=== PATIENT | female | born 1990 | race Caucasian/White ===

== ENCOUNTER 2018-09-24 06:17 | Inpatient (IN) | payer BC ==
[2018-09-24] VITALS (30 sets, daily range): BP systolic 122–159; BP diastolic 59–96; PULSE 64–105; TEMP 98.2–98.8
[~2018-09-24] VITALS: Ht 165.1 cm; Wt 84.5 kg
[~2018-09-24 06:17] MED LIST: ASPIRIN 32325 MG/TAB PO; PEPCID 20MG TAB20 MG PO; TYLENOL 325MG325 MG PO
[2018-09-24] MEDS ORDERED: PRENATAL MVI (07:19)
[2018-09-24 08:16] LABS: COLLECTION METHOD CLEAN CATCH
[2018-09-24 08:18] LABS: HEMOGLOBIN 14.1 g/dl (12.5-16.0); MEAN CELL VOLUME 84 fl (80.0-100.0); MEAN CORPUSCULAR HEMOGLOBIN 28 pg (27.0-31.0); MEAN CORPUSCULAR HGB CONC 33 g/dl (33.0-37.0); PLATELET COUNT 175 K/mm3 (130-400); RED BLOOD COUNT 5.11 M/mm3 (4.10-5.30); REDCELL DISTRIBUTION WIDTH-CV 13.7 % (11.5-14.5)
[2018-09-24 08:27] LABS: PH 7 (5-8); URINE APPEARANCE Clear; URINE BACTERIA None Seen /hpf; URINE BILIRUBIN Negative (NEGATIVE); URINE BLOOD 2+ (NEGATIVE); URINE COLOR Yellow; URINE GLUCOSE Negative (NEGATIVE); URINE KETONE Negative (NEGATIVE); URINE LEUKOCYTE ESTERASE Negative (NEGATIVE); URINE NITRATE Negative (NEGATIVE); URINE PROTEIN(semi-quant) Negative (NEGATIVE); URINE UROBILINOGEN Negative (NEGATIVE)
[2018-09-24 08:29] LABS: ALBUMIN 3.7 gm/dL (3.5-5.0); CALCIUM 9.9 mg/dL (8.4-10.2); CREATININE, serum 0.68 mg/dL (0.52-1.25); TOTAL PROTEIN 6.8 gm/dL (6.4-8.2)
[2018-09-24 08:30] LABS: BILIRUBIN,TOTAL 0.3 mg/dL (0.0-1.0)
[2018-09-24 08:43] LABS: BAND 9 % (0-10); EOSINOPHIL 1 % (0-4); LYMPHOCYTE 18 % (20.0-51.0); NEUTROPHILS 65 % (42.0-75.2); PLATELET ESTIMATE NORMAL (NORMAL)
[2018-09-25 00:52] VITALS: BP 135/85; PULSE 69
[2018-09-25 03:08] VITALS: BP 145/89; PULSE 69; TEMP 98.6
[2018-09-25 06:09] VITALS: BP 130/84; PULSE 75; TEMP 98.9
[2018-09-25 13:00] VITALS: BP 131/82; PULSE 70
[2018-09-25 21:25] VITALS: BP 138/72; PULSE 81
[2018-09-26 07:41] VITALS: BP 130/89; PULSE 76; TEMP 98.6
[2018-09-26] MEDS ORDERED: IBU600 MG PO (08:43)
== END 2018-09-26 15:45 | disposition home or self-care (01) | DRG 806 ==
LOC: LDRO 06:17 → OB 07:25 → LDR 07:25 → OB 16:45
PROVIDERS: Obstetrics & Gynecology
PROC: 10E0XZZ Delivery of Products of Conception, External Approach (ICD-10-PCS; principal; 2018-09-24)
PROC: 0KQM0ZZ Repair Perineum Muscle, Open Approach (ICD-10-PCS; 2018-09-24)
DX: O70.1 Second degree perineal laceration during delivery (principal); O99.413 Diseases of the circulatory system complicating pregnancy, third trimester; Z37.0 Single live birth; I31.9 Disease of pericardium, unspecified; Z3A.39 39 weeks gestation of pregnancy; O76 Abnormality in fetal heart rate and rhythm complicating labor and delivery; O99.824 Streptococcus B carrier state complicating childbirth
CPT/HCPCS: J2540; J2590; J2795; J7120

== ENCOUNTER → 2020-05-05 | Outpatient (CLI) | payer BC ==
[~2020-05-05] MED LIST changes: +IBU600 MG PO; +PRENATAL MVI
== END ==
LOC: ZCOL.LAB 15:14
DX: M79.10 Myalgia, unspecified site (principal); R09.81 Nasal congestion

== ENCOUNTER 2021-01-22 04:59 | Inpatient (IN) | payer BC ==
[2021-01-22] VITALS (20 sets, daily range): BP systolic 117–166; BP diastolic 79–101; PULSE 62–94; TEMP 97.6–99.3
[~2021-01-22] VITALS: Ht 172.7 cm; Wt 84.1 kg
--- NOTE | 2021-01-22 05:15 | NUR ---
0515 G2 L1 39.3 WEEKS GEST TO LR5 WITH C/O SROM AT 0400 AND PAINFUL CONTRACTIONS. EFM ON. SVE /-1. WANTING EPIDURAL. ADM ASSESMENT DONE. 0520 DR HIGHTOWER AND ORDER TO ADMIT RECEIVED. ANESTHSIA CALLED.
[2021-01-22] MEDS ORDERED: PRENATAL TABLET PO (05:22)
[2021-01-22] MEDS ORDERED: COLACE 100100 MG/CAP PO (05:23)
--- NOTE | 2021-01-22 05:50 | NUR ---
0550 IV STARTED AND IV ANTIBIOTIC STARTED PER PROTOCOL. CHILD ADVOCATE HERE AND SAT ON SIDE OF BED FOR EPIDURAL PLACEMENT. 0601 EPID DOSED. SEE ANESTHESIA RECORD FOR MORE INFORMATION.
[2021-01-22 05:56] LABS: HEMATOCRIT 45.5 % (37.0-47.0); HEMOGLOBIN 14.7 g/dl (12.5-16.0); MEAN CELL VOLUME 88 fl (80.0-100.0); MEAN CORPUSCULAR HEMOGLOBIN 28 pg (27.0-31.0); MEAN CORPUSCULAR HGB CONC 32 g/dl (33.0-37.0); MEAN PLATELET VOLUME 11.7 fl (7.4-10.4); PLATELET COUNT 177 K/mm3 (130-400); RED BLOOD COUNT 5.18 M/mm3 (4.10-5.30); REDCELL DISTRIBUTION WIDTH-CV 13.6 % (11.5-14.5)
[2021-01-22 06:24] LABS: HYPOCHROMIA 1+; LYMPHOCYTE 31 % (20.0-51.0); NEUTROPHILS 64 % (42.0-75.2); PLATELET ESTIMATE NORMAL (NORMAL)
--- NOTE | 2021-01-22 07:49 | NUR ---
0736- Dr Collins at [facility]. SVE complete. Pt and room set-up for delivery. Kristine, Nursery RN and Rani, commercial loan analyst at bedside. Almeida removed without difficulty. 0743- Pt begins pushing with UCs. 0749- of viable female . To mother's abd, tended to by nursery staff. 2nd degree perineal laceration repaired by . 0751- Spontaneous delivery of placenta. Pitocin started at 333ml/hr. Pericare completed. Clean chux under buttock. Pt repositioned in bed. Mom doing well. Baby [id number]-[id number]-muam.
[2021-01-23 05:10] VITALS: BP 129/67; PULSE 79; TEMP 98.1
[2021-01-23 07:10] VITALS: BP 120/69; PULSE 77; TEMP 98.1
[2021-01-23] MEDS ORDERED: IBU600 MG PO (08:49)
[2021-01-23 16:55] VITALS: BP 143/79; PULSE 58; TEMP 98.2
[2021-01-23 23:02] VITALS: BP 141/90; PULSE 62; TEMP 98.4
[2021-01-24 06:05] VITALS: BP 145/90; PULSE 60
[2021-01-24 07:06] VITALS: BP 143/86; PULSE 63; TEMP 98.3
[2021-01-24 07:08] VITALS: BP 147/94
--- NOTE | 2021-01-24 09:51 | NUR ---
Patient given discharge instructions. Reviewed instructions, PIH symptoms and encouraged to call office to schedule postpartm BP check per provider. Agrees to plan of care and denies questions.
== END 2021-01-24 10:38 | disposition home or self-care (01) | DRG 807 ==
LOC: LDRO 04:59 → LDR 05:06 → OB 05:06
PROVIDERS: Obstetrics & Gynecology; ADMIT Student in an Organized Health Care Education/Training Program
PROC: 10E0XZZ Delivery of Products of Conception, External Approach (ICD-10-PCS; principal; 2021-01-22)
PROC: 0KQM0ZZ Repair Perineum Muscle, Open Approach (ICD-10-PCS; 2021-01-22)
DX: O99.824 Streptococcus B carrier state complicating childbirth (principal); Z37.0 Single live birth; O70.1 Second degree perineal laceration during delivery; O99.892 Other specified diseases and conditions complicating childbirth; N87.9 Dysplasia of cervix uteri, unspecified; Z3A.39 39 weeks gestation of pregnancy
CPT/HCPCS: J2540; J2590; J2795; J7120

== ENCOUNTER 2022-05-05 10:03 | Outpatient (RCR) | payer BC ==
[~2022-05-05 10:03] MED LIST changes: +COLACE 100100 MG/CAP PO; +PRENATAL TABLET PO
== END 2022-05-23 | disposition home or self-care (01) ==
LOC: MKS.ESL.PT
DX: H81.13 Benign paroxysmal vertigo, bilateral (principal)

== ENCOUNTER 2023-09-08 09:00 | Outpatient (RCR) | payer BC | END 2023-09-22 | disposition home or self-care (01) | LOC: WSPT | DX: H81.10 Benign paroxysmal vertigo, unspecified ear (principal) ==

== ENCOUNTER 2023-10-06 09:00 | Outpatient (RCR) | payer BC | END 2023-10-23 | disposition home or self-care (01) | LOC: WSPT | DX: H81.10 Benign paroxysmal vertigo, unspecified ear (principal) ==

== ENCOUNTER 2023-11-10 09:05 | Outpatient (RCR) | payer BC | END 2023-11-23 | disposition home or self-care (01) | LOC: WSPT | DX: H81.10 Benign paroxysmal vertigo, unspecified ear (principal) ==